=== PATIENT | male | born 1980 | race Caucasian/White ===

== ENCOUNTER 2023-12-09 09:41 | Outpatient (CLI) | payer OTHER, SELFPAY ==
[2023-12-09 10:10] VITALS: PULSE 83; PULSE 86
[2023-12-09] MEDS: ALBUTEROL 0.083% 2.5 MG/3 ML NEB IH (10:10)
== END 2023-12-09 23:59 ==
LOC: RT 09:42
PROVIDERS: Visit Provider Chiropractor
DX: R06.02 Shortness of breath (principal)
CPT/HCPCS: 94060; 94640

== ENCOUNTER 2024-01-03 10:01 | Outpatient (CLI) | payer OTHER, SELFPAY ==
--- NOTE | 2024-01-03 10:07 | XR_ITS ---
FINAL REPORT CLINICAL HISTORY: SPRAIN COMPARISON: None FINDINGS: RIGHT ANKLE: Three views of the right ankle were obtained. There is no acute fracture or dislocation. There are presumed postoperative changes in the distal tibia and fibula. The joint spaces and mortise are intact. There is no soft tissue abnormality. IMPRESSION: No acute bony abnormality. Presumed postoperative changes in the distal tibia and fibula. Reviewed, Interpreted and Dictated by Rodolfo Olvera III, MD Transcribed by Tonia Espinoza Authenticated and [facility]
== END 2024-01-03 23:59 ==
LOC: RAD 10:03
PROVIDERS: PCP Internal Medicine; Visit Provider Chiropractor
DX: M25.571 Pain in right ankle and joints of right foot (principal)
CPT/HCPCS: 73610